=== PATIENT | male | born 1960 | race Caucasian/White ===

== ENCOUNTER 2017-01-18 18:34 | Emergency (ER) | payer MEDICAID, OTHER ==
[~2017-01-18] VITALS: Ht 177.8 cm; Wt 84.0 kg
[2017-01-18 18:40] VITALS: Ht 177.8 cm; Wt 84.0 kg
[2017-01-18] MEDS ORDERED: CEPHALEXIN 500 MG CAP PO ONE (19:30)
[2017-01-18] MEDS ORDERED: CIPROFLOXACIN 500 MG TAB PO ONE (19:30)
[2017-01-18] MEDS ORDERED: CIPR500T4 PO (20:46)
[2017-01-18] MEDS ORDERED: CEPH-443 PO (20:46)
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
[2017-01-18 22:21] VITALS: PULSE 78; TEMP 98.3
[2017-01-19] MEDS ORDERED: CIPR500T4 PO (22:02)
[2017-01-19] MEDS ORDERED: CEPH-443 PO (22:02)
== END 2017-01-18 22:22 | disposition home or self-care (01) ==
LOC: FTE 18:34
DX: I83.029 Varicose veins of left lower extremity with ulcer of unspecified site (principal); L97.929 Non-pressure chronic ulcer of unspecified part of left lower leg with unspecified severity
CPT/HCPCS: Z7502; Z7610; 99284

== ENCOUNTER 2017-01-19 21:51 | Emergency (ER) | payer MEDICAID ==
[~2017-01-19] VITALS: Ht 185.4 cm; Wt 86.0 kg
[~2017-01-19 21:51] MED LIST: CEPH-443 PO; CIPR500T4 PO
[2017-01-19 21:53] VITALS: Ht 185.4 cm; Wt 86.0 kg
[2017-01-19] MEDS ORDERED: CEPH-443 PO (22:02)
[2017-01-19] MEDS ORDERED: CIPR500T4 PO (22:02)
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
[2017-01-19] MEDS ORDERED: CEPHALEXIN 500 MG CAP PO ONE (22:30)
== END 2017-01-19 22:57 | disposition home or self-care (01) ==
LOC: E/R 21:51
DX: I87.2 Venous insufficiency (chronic) (peripheral) (principal)
CPT/HCPCS: 99284

== ENCOUNTER 2017-01-20 21:28 | Emergency (ER) | payer MEDICAID ==
[~2017-01-20] VITALS: Wt 85.5 kg
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
== END 2017-01-20 22:55 | disposition home or self-care (01) ==
LOC: FTE 21:28
DX: Z48.01 Encounter for change or removal of surgical wound dressing (principal); Z87.891 Personal history of nicotine dependence
CPT/HCPCS: 99281